=== PATIENT | female | born 1960 | race Two or more races ===

== ENCOUNTER 2022-12-15 03:46 | Emergency (ER) | payer MEDICAID ==
[~2022-12-15] VITALS: Ht 157.5 cm; Wt 107.3 kg
[2022-12-15] MEDS ORDERED: AMOX-277 PO (05:11)
[2022-12-15] MEDS ORDERED: ACET-1158 PO (05:11)
[2022-12-15] MEDS ORDERED: methylPREDNISolone SOD SUCC 125 MG/2 ML VL IM ONE (05:15)
[2022-12-15 05:40] VITALS: BP 113/56
== END 2022-12-15 05:47 | disposition home or self-care (01) ==
LOC: ER 03:46
DX: K04.7 Periapical abscess without sinus (principal); J02.9 Acute pharyngitis, unspecified; E11.9 Type 2 diabetes mellitus without complications; I10 Essential (primary) hypertension; E03.9 Hypothyroidism, unspecified
CPT/HCPCS: 96372; 99283; J2930